=== PATIENT | female | born 1955 | race African-American/Black ===

== ENCOUNTER → 2017-08-17 | Outpatient (CLI) | payer OTHER ==
[~2017-08-17] VITALS: Ht 162.6 cm; Wt 73.1 kg
[~2017-08-17] MED LIST: HYDROCODONE-AP1 EAC6 PO; JANUMET 50-1,01 EACH PO; KLOR-CON 1010 MEQ PO; LYRICA100 MG PO; LYRICA150 MG PO; MOBIC15 MG PO; NABUMETONE 500500 M1 PO; NUCYNTA50 MG PO; PAXIL40 MG PO; PERCOCET 5-3251 EACH PO; PRAVACHOL20 MG PO; RELAFEN500 MG PO; TRIAMTERENE-HC1 EAC1 PO; VENTOLIN HFA INH8 GM INH; VICODIN 5-5001 EACH PO
--- NOTE | ~2017-08-17 | HPC ---
[facility] [place] [address] PAIN MANAGEMENT CONSULTATION Name: SANTIDARLEEN PRADO Room #: REG [facility].#: [id number] Admission: 08/17/17 Attend Phys: Mik De Jesus DO Discharge: Date of : 57 Report #: [id number] THIS REPORT FOR: //name// CC: Delio De Jesus DATE OF SERVICE: 08/18/2017 The patient is a very pleasant 61-year-old female, works at [employer]. She was prior seen for both cervical and lumbar radicular symptoms in the past. She had lumbar epidural injection back in 12/2015, which afforded good relief of lumbar radicular pain. She prior had cervical epidural injection in 2013 and 2014. Returns to Pain Clinic today noting cervical radicular symptoms seem to be returning without antecedent trauma and overuse. Notes pain is in the neck, right shoulder and arm, rates it an 8 on a VAS, deep aching sensation, worse at night, worse with raising the arm above her head. PHYSICAL EXAMINATION: Shows a 61-year-old female, BMI is 27.7 kg/m2. Vital signs stable as noted in the EMR. Cervical range of motion is modestly limited. Positive Lhermitte's with pain radiating into the neck, right shoulder and arm, decreased right deltoid and triceps strength. Hand grasp is diminished, but only modestly so. We reviewed her MRI of the cervical spine from 08/27/2015 noting moderate central stenosis C5-C6 with bilateral neural foraminal narrowing at C5-C6 and C4-C5. ASSESSMENT: Symptomatic cervical radiculopathy by clinical exam and history, history of lumbar radiculopathy. Epidural injection at last visit afforded good lumbar radicular improvement. Requires complex medication management. We had trialed Percocet in the past. She does better with hydrocodone. I have taken the liberty of renewing hydrocodone 5/325; limit 100 tablets, 1 tablet 3-4 times a day. We will resume nonsteroidal anti-inflammatory agent, meloxicam 15 mg one a day. Cervical epidural injection today. Follow up in 4 weeks for reevaluation. Cancel if doing well. ASSESSMENT: 1. Symptomatic cervical radiculopathy with clinical exam and history. Procedure: Cervical epidural injection under fluoroscopy. 2. Lumbar radiculopathy by history, axial back pain and myofascial pain component, requiring high-risk complex medication management. RECOMMENDATIONS: Medication as noted above, hydrocodone, and meloxicam. PROCEDURE NOTE: Cervical epidural injection under fluoroscopy. [address] [address] PAIN MANAGEMENT CONSULTATION Name: DARLEEN HANCOCK Room #: REG [facility] [place]#: [id number] Admission: 08/17/17 Attend Phys: Mik De Jesus DO Discharge: Date of : 57 Report #: [id number] PROCEDURE NOTE: After written and informed consent was obtained including risk of dural puncture, spinal cord trauma, paralysis and increased pain, the patient was taken to the fluoroscopy suite and placed in the prone position, with appropriate abdominal bolstering, neck was flexed, palms under the thighs. Skin was prepped with ChloraPrep. Sterile draping was applied. Skin wheal with 1% Xylocaine was raised. A 22-gauge 3-1/2 inch epidural Tuohy needle was placed via a midline approach at the C7-T1 interspace, advanced under biplanar fluoroscopy using continuous loss of resistance. With appropriate loss of resistance at the expected depth on lateral view, the glass loss of resistance syringe was disconnected. A low volume extension tubing was connected to the needle and a 5 mL syringe. Negative aspiration for cerebrospinal fluid or blood was noted. A 1 mL of Omnipaque was injected which showed spread within the epidural space on biplanar fluoroscopy. This was followed with 80 mg of triamcinolone plus 1 mL of 1.5% preservative Xylocaine. Needle was withdrawn to the interspinous ligament, 0.5 mL of Xylocaine was used to flush the needle. The needle was then completely withdrawn. The area was cleansed. Band-Aid was applied. The patient was allowed to move off the procedure table and ambulated to the recovery room, monitored for an appropriate period of time, discharged in good and stable condition. <ELECTRONICALLY SIGNED> By: Mik De Jesus DO 08/20/17 0715 [id number] [id number] Mik De Jesus DO /nt
[2017-08-17 13:20] VITALS: BP 133/74
== END | disposition home or self-care (01) ==
LOC: PAIN 07:11
DX: M54.12 Radiculopathy, cervical region (principal); G89.29 Other chronic pain; M54.16 Radiculopathy, lumbar region; M79.1 Myalgia; Z87.891 Personal history of nicotine dependence; Z88.6 Allergy status to analgesic agent

== ENCOUNTER → 2018-06-14 | Outpatient (CLI) | payer OTHER ==
[~2018-06-14] VITALS: Ht 162.6 cm; Wt 65.9 kg
[~2018-06-14] MED LIST changes: +HYDROCODON-ACE1 EAC7 PO; +NEURONTIN 300300 M1 PO
--- NOTE | ~2018-06-14 | HPC ---
[facility] [place] [address] PAIN MANAGEMENT CONSULTATION Name: DARLEEN HANCOCK [id number] Admission: 06/14/18 Attend Phys: Monica Youngblood MD Discharge: Date of : 57 Report #: [id number] THIS REPORT FOR: //name// CC: Delio Youngblood DATE OF SERVICE: 06/14/2018 PRIMARY CARE PHYSICIAN: Delio Luo M.D. CHIEF COMPLAINT: Pain between the shoulder blades and pain is radiating down into the arm and first 2 fingers. HISTORY OF PRESENT ILLNESS: The patient is a 62-year-old female who has been seen in the pain clinic in the past by Dr. Mik De Jesus. This is my first visit with the patient. She has a history of cervical and lumbar radicular symptoms. She has undergone epidural steroid injections in the lumbar area. She has also noted improvement after cervical epidural steroid injections in 2013 and 2014. She returns to the pain clinic indicating that her cervical radicular symptoms have returned without antecedent trauma or overuse. The patient notes pain in the neck, right shoulder, arms and pain that she rates as 3 in intensity now and can rise to the level of a 7/10 at bedtime. She experienced a deep aching sensation, which is worse at night, raising her arm above her head, it can be problematic. She had an MRI, which back in 2015 showed central spinal stenosis at C5-C6 with bilateral neural foraminal narrowing at C5/C6 and C4/C5. The patient has returned to the pain clinic with the desire to try medication management as well as consider possibility of another cervical epidural steroid injection in the future. ALLERGIES: CODEINE. CURRENT MEDICATIONS: Nabumetone 500 mg b.i.d., hydrocodone 5/325 p.r.n., metformin/Janumet mg, potassium 10 mEq, triamterene/hydrochlorothiazide 37.5/25, Paxil 40 mg. PAST MEDICAL HISTORY: Hypertension, depression, fibromyalgia, asthma, ringing in the ears, and chronic back pain. PAST SURGICAL HISTORY: Right hand cyst removal in 1979, tubal ligation, laparoscopic hernia repair in 2012. SOCIAL HISTORY: Instructor. REVIEW OF SYSTEMS: Generally good health, eye disease, double and blurred vision, glaucoma/cataracts, hearing loss/ringing in the ears, chronic problems, [facility] [address] [place] [address] PAIN MANAGEMENT CONSULTATION Name: DARLEEN HANCOCK Room #: REG [facility]#: [id number] Admission: 06/14/18 Attend Phys: Monica Youngblood MD Discharge: Date of : 57 Report #: [id number] sinuses asthma/wheezing, depression. LABORATORY DATA: MRI of the lumbar spine dated 10/24/2010. Impression - bulging disk seen at the lower 3 disk space levels in the lumbar spine with asymmetric ridging to the right with borderline canal narrowing at L4-L5. Asymmetric changes are associated with a right lateral recess annular tear. Mild broad-based disk protrusion to the right is thought less likely. PAIN CLINIC ASSESSMENT AND PQRS: 1. The patient has some arthritic changes up to the cervical neck area. 2. History of rheumatoid arthritis. The patient is not being treated for rheumatoid arthritis. 3. Height 5 feet 4 inches, weight 145 pounds, BMI is 24. 4. Vital Signs: Blood pressure 123/64, pulse 91, respiratory rate 16, room air saturation is 100%. 5. Pain intensity 3/10, now 7/10 at bedtime. 6. Fall risk. The patient has not fallen in the last 3 months. 7. Blood thinner. The patient is not on a blood thinning medication. 8. Hypertension. The patient is being treated for hypertension. 9. Opioid therapy greater than 6 weeks. The patient has come to the pain clinic with a desire to try opioid medications to help calm down her pain and discomfort. 10. Risk assessment tool for use of opioid medication with moderate risk. 11. Functional assessment tool. 12. Recreational drug use. The patient denies use of recreational drugs. 13. Tobacco: The patient is a former smoker. 14. Alcohol: The patient denies use of alcoholic beverages. PHYSICAL EXAMINATION: GENERAL: The patient is a well-developed, well-nourished black female. Appears her stated age. She is alert and oriented x 3. Affect is appropriate. Speech is fluent. HEENT: Normocephalic, atraumatic. Extraocular eye muscles intact. Sclerae nonicteric. Mucous membranes are moist. The patient has pain and discomfort in the upper neck area with pain and discomfort, which is radiating down between her shoulder blades on the right side into her arm and into the first 2 fingers, ring finger and index finger with some numbness and tingling. HEART: Regular rate. ABDOMEN: Nontender. Bowel sounds positive. EXTREMITIES: Upper extremity muscle strength is judged to be 5-/5 for the upper extremity muscles. Lower extremity muscle strength is judged to be 5/5 for the major muscle groups in the lower extremity. RECOMMENDATIONS: We discussed treatment options with the patient. Risks and benefits of opioid medications, which could include possibility of addiction as well as decreased effectiveness over a period of time secondary to development [address] [address] PAIN MANAGEMENT CONSULTATION Name: DARLEEN HANCOCK Room #: REG [facility].#: [id number] Admission: 06/14/18 Attend Phys: Monica Youngblood MD Discharge: Date of : 57 Report #: [id number] of tolerance. The patient will be given a script for [place] 5/325 1 p.o. q.4-6 hours. She will also try Neurontin 300 mg t.i.d. and note its efficacy. She will call us in 5 days if she has any concerns. We would like to thank you for letting us participate in her care. We hope she continues to improve. By: [id number] Monica Youngblood MD /DEQUAN
[2018-06-14 09:02] VITALS: BP 123/64
== END ==
LOC: PAIN 08:29
DX: M54.5 Low back pain (principal); M25.511 Pain in right shoulder; M54.2 Cervicalgia; M79.601 Pain in right arm; M79.641 Pain in right hand; Z79.899 Other long term (current) drug therapy; Z79.891 Long term (current) use of opiate analgesic

== ENCOUNTER → 2018-07-29 | Outpatient (CLI) | payer BC | LOC: MRI 07-24 11:36 | DX: M50.13 Cervical disc disorder with radiculopathy, cervicothoracic region (principal); M48.03 Spinal stenosis, cervicothoracic region; M25.78 Osteophyte, vertebrae ==

== ENCOUNTER 2018-09-16 13:27 | Emergency (ER) | payer BC ==
[~2018-09-16] VITALS: Ht 162.6 cm; Wt 62.6 kg
[2018-09-16 13:28] VITALS: BP 135/58
== END 2018-09-16 15:58 | disposition home or self-care (01) ==
LOC: ER 13:27
DX: M79.644 Pain in right finger(s) (principal); Z53.21 Procedure and treatment not carried out due to patient leaving prior to being seen by health care provider

== ENCOUNTER → 2019-04-14 | Outpatient (CLI) | payer OTHER | LOC: RAD 12:59 | DX: M41.86 Other forms of scoliosis, lumbar region (principal); M25.551 Pain in right hip ==

== ENCOUNTER → 2019-06-06 | Outpatient (CLI) | payer BC ==
[~2019-06-06] VITALS: Ht 162.6 cm; Wt 66.5 kg
[~2019-06-06] MED LIST changes: +LISINOPRIL10 MG PO; +MEDROLDOSEPACK PO; +PREVACID30 MG PO; +ROXICODONE5 M2 PO
[2019-06-06 13:45] VITALS: BP 124/66
--- NOTE | 2019-06-06 13:52 | NUR ---
Pain Clinic Assessment: 1. History of Osteoarthritis: SPINE History of Rheumatoid Arthritis: NO 2. Height: 5 ft. 4 in. 162.6 cm. Weight: 146.6 lb. oz. 66.497 kg. Patient's BMI: 25.2 3. Vital Signs: BP: 124/66 Pulse: 82 Resp: Temp: 02 Sat: 100 ECG Mon: 4. Pain Intensity: 3 NOW 7 AT HS 5. Fall Risk: Dizziness: N Needs help standing or walking: N Fallen in the last 3 months: N Fall risk comments: 6. Patient on Blood Thinner: None 7. History of Hypertension: Y 8. Opioid Therapy greater than 6 weeks: Y Opiate Contract Signed: 01/10/16 9. Risk Assessment Tool Provided: 4 MODERATE RISK 10. Functional Assessment Tool: 11. Recreational Drug Use: Never Drug Type: Tobacco Use: Former Smoker Tobacco Type: Amount or Packs/day: How Many Years: Alcohol Use: No Frequency: Quant:
--- NOTE | 2019-06-24 21:49 | HPC ---
[facility] [place] [address] PAIN MANAGEMENT CONSULTATION Name: DARLEEN HANCOCK [id number] Admission: 06/06/19 Attend Phys: Monica Youngblood MD Discharge: Date of : 57 Report #: [id number] THIS REPORT FOR: //name// CC: Alondra Youngblood DATE OF SERVICE: 06/06/2019 CHIEF COMPLAINT: Pain in the shoulder blade area. HISTORY: The patient is a 63-year-old female who has been seen in the pain clinic. She has had pain and discomfort in the past. Notes that she has had pain radiating down into her arms and involving her fingers. She returns to the pain clinic indicating that she is having some recurrence of pain and discomfort. She is having pain in the shoulder areas as well as pain between her shoulder blades. She rates the pain as a 3/10 at this point. It can rise to the level of 7 at bedtime. She has a history of cervical as well as lumbar radicular pain. Epidural steroid injections have improved her situation in the past. She has had an MRI. This showed central spinal stenosis at C5-C6 and bilateral neural foraminal narrowing at C5-C6 and C4/C5. She has returned to the pain clinic. She would like to try a conservative approach with medications. ALLERGIES: CODEINE. CURRENT MEDICATIONS: Lisinopril 10 mg, Prevacid 30 mg, gabapentin 300 mg t.i.d., hydrocodone 5/325 q.4 hours p.r.n., Janumet , triamterene/hydrochlorothiazide 37.5/25. PAIN CLINIC ASSESSMENT/PQRS: 1. History of osteoarthritis. The patient has some arthritic changes in her cervical spine as well as the lumbar spine. 2. Height 5 feet 4 inches, weight 146 pounds, BMI is 25.2. 3. Vital signs: Blood pressure 124/66, pulse 82, respiratory rate 18, room air saturation is 100%. 4. Pain intensity 3, now 7 at bedtime. 5. Fall risk. The patient has not fallen in the last 3 months. 6. Blood thinner. The patient is not on a blood thinning medication. 7. Hypertension. The patient is being treated for hypertension. 8. Opioids greater than 6 weeks. The patient received medication from one source. 9. Risk assessment tool, moderate for opioid use. 10. Functional assessment tool. 11. Recreational drug use: The patient denies. 12. Tobacco: The patient is a former smoker. 13. Alcohol. The patient denies use of alcoholic beverages. [address] [address] PAIN MANAGEMENT CONSULTATION Name: DARLEEN HANCOCK [id number] Admission: 06/06/19 Attend Phys: Monica Youngblood MD Discharge: Date of : 57 Report #: [id number] PHYSICAL EXAMINATION: GENERAL: The patient is a well-developed, well-nourished black female. She appears her stated age. She is alert and oriented x 3. Her affect is appropriate. Speech is fluent. HEENT: Normocephalic, atraumatic. Extraocular eye muscles intact. Sclerae nonicteric. Mucous membranes are moist. NECK: The patient has some pain in the upper neck area. Complains of pain between her shoulder blades. Notes some weakness and discomfort down into her arms. Has had numbness and tingling on the right side and down into her first 2 fingers in the past. HEART: Regular rate. ABDOMEN: Nontender. Bowel sounds present. EXTREMITIES: Upper extremity muscle strength judged to be 5-/5 for the major muscle groups in the upper extremity. Lower extremity muscle strength 5-/5 for the lower muscle groups. IMPRESSION: Cervical radiculopathy with spinal stenosis in the cervical spine area. RECOMMENDATIONS: We discussed the treatment options with the patient. At this juncture, we will try a conservative approach. The patient will try a Medrol Dosepak. She will take this medication as prescribed. She will also try oxycodone 5 mg 1 p.o. b.i.d. to help control the pain. Should her pain become problematic and continue to be painful, she will return to the Pain Clinic, at which time we will then consider an epidural steroid injection in the cervical area. We would like to thank you for letting us participate in her care. We hope she continues to improve. <ELECTRONICALLY SIGNED> By: Monica Youngblood MD 06/24/19 [id number] Monica Youngblood MD /thomas
== END ==
LOC: PAIN 06:55
DX: M48.02 Spinal stenosis, cervical region (principal); M54.12 Radiculopathy, cervical region; Z88.5 Allergy status to narcotic agent; Z79.899 Other long term (current) drug therapy

== ENCOUNTER → 2019-08-08 | Outpatient (CLI) | payer OTHER | LOC: RAD 14:36 | DX: M47.816 Spondylosis without myelopathy or radiculopathy, lumbar region (principal); M48.061 Spinal stenosis, lumbar region without neurogenic claudication; M48.02 Spinal stenosis, cervical region; M43.8X4 Other specified deforming dorsopathies, thoracic region; M46.06 Spinal enthesopathy, lumbar region; M25.78 Osteophyte, vertebrae; M50.323 Other cervical disc degeneration at C6-C7 level; M41.86 Other forms of scoliosis, lumbar region; G89.29 Other chronic pain ==

== ENCOUNTER → 2019-10-03 | Outpatient (CLI) | payer OTHER ==
[~2019-10-03] VITALS: Ht 162.6 cm; Wt 70.6 kg
[~2019-10-03] MED LIST changes: +NORCO 5-325 TA1 EAC2 PO
--- NOTE | ~2019-10-03 | HPC ---
[facility] [place] [address] PAIN MANAGEMENT CONSULTATION Name: DARLEEN HANCOCK Room #: REG [facility].#: [id number] Admission: 10/03/19 Attend Phys: Monica Youngblood MD Discharge: Date of : 57 Report #: [id number] THIS REPORT FOR: cc: Nina Mckeno MD,Monica Mcelroy MD, MD ~ CC: Monica Mckeon DATE OF SERVICE: 10/03/2019 CHIEF COMPLAINT: Still having some pain between the shoulder blades and down in the right arm and middle fingers. HISTORY: The patient is a 63-year-old female who has been followed in the pain clinic. She has returned to the pain clinic because she is still experiencing some pain and discomfort. She has pain down in her right arm. She has numbness in her fingers. She gleaned benefit from the past epidural steroid injection. She felt that it helped for about 6 months. She rates her pain as 5/10 today. She would like to have a renewal of medications to help with the pain. She does have some spinal stenosis at C5-C6 and C3-C4. She would like to continue with the conservative approach today. The patient previously stopped her oral medications is due to GI upset. She was seen by her gastrointestinal physician. Everything seems to be working reasonably well. She would like to restart her gabapentin as well as her [place] medications. ALLERGIES: CODEINE. CURRENT MEDICATIONS: Lisinopril 10 mg, Prevacid 30 mg, gabapentin 300 mg t.i.d., hydrocodone 5/325 q. 4 hours p.r.n., Janumet 50/100, triamterene/hydrochlorothiazide 37.5 mg/25 mg. PAIN CLINIC ASSESSMENT AND PQRS: 1. The patient has a history of osteoarthritis. She has some arthritic changes in her cervical spine as well as in her lumbar spine. She is not being treated for rheumatoid arthritis. 2. Height 5 feet 4 inches, weight 155 pounds, BMI is 26. 3. Vital signs: Blood pressure 125/64, pulse 82, respiratory rate 18, room air saturation is 100%. 4. Pain intensity 5/10. 5. Fall history: The patient has not fallen in the last 3 months. 6. Blood thinner: The patient is not on the blood thinning medication. 7. Hypertension. The patient is being treated for hypertension. 8. Opioids greater than 6 weeks. The patient received medication from one source. 9. Risk assessment 4/[place] [address] PAIN MANAGEMENT CONSULTATION Name: DARLEEN HANCOCK Room #: REG [facility]#: [id number] Admission: 10/03/19 Attend Phys: Monica Youngblood MD Discharge: Date of : 57 Report #: [id number] 10. Functional assessment tool /70. 11. Recreational drug use: The patient denies. 12. Tobacco: The patient is a former smoker, smoked about 15 years. 13. Alcohol. The patient denies use of alcoholic beverages. PHYSICAL EXAMINATION: GENERAL: The patient is a well-developed, well-nourished black female, appears her stated age. She is alert and oriented x 3. Her affect is appropriate. Speech is fluent. HEENT: Normocephalic and atraumatic. Extraocular eye muscles intact. Sclerae nonicteric. Mucous membranes are moist. NECK: Without adenopathy or JVD. The patient has pain and discomfort down between her shoulder blades, has tingling in her first two fingers. HEART: Regular rate. ABDOMEN: Nontender. Bowel sounds present. EXTREMITIES: Upper extremity muscle strength noted to be 5-/5 for the major muscle groups in the upper extremity. The patient has lower extremity muscle strength 5-/5. IMPRESSION: 1. History of cervical radiculopathy with spinal stenosis in the cervical spine area. 2. Hypertension. 3. GI complaints. 4. Diabetes. RECOMMENDATIONS: We discussed treatment options with the patient. At this juncture, we will renew the patient's medication. She feels that her stomach is less problematic at this juncture. A script for her medications has been written. She will take hydrocodone 5/325 one p.o. as directed. She will also take gabapentin 300 mg 1 p.o. t.i.d. She will continue with nabumetone 500 mg b.i.d. The patient will monitor her GI tract because of the nonsteroidal effects of the nabumetone. She has been given a Medrol Dosepak to see whether or not this would help to decrease the pain and discomfort in a conservative method. She will follow up in the near future. The possibility of a cervical epidural steroid injection in the future is an option. We would like to thank you for letting us participate in her care. We hope she continues to improve. By: [id number] Monica Youngblood MD /DEQUAN
[2019-10-03 08:50] VITALS: BP 125/64
--- NOTE | 2019-10-03 08:56 | NUR ---
Pain Clinic Assessment: 1. History of Osteoarthritis: SPINE History of Rheumatoid Arthritis: NO 2. Height: 5 ft. 4 in. 162.6 cm. Weight: 155.6 lb. oz. 70.580 kg. Patient's BMI: 26.7 3. Vital Signs: BP: 125/64 Pulse: 82 Resp: 18 Temp: 02 Sat: 100 ECG Mon: 4. Pain Intensity: 5 5. Fall Risk: Dizziness: N Needs help standing or walking: N Fallen in the last 3 months: N Fall risk comments: 6. Patient on Blood Thinner: None 7. History of Hypertension: Y 8. Opioid Therapy greater than 6 weeks: Y Opiate Contract Signed: 01/10/16 9. Risk Assessment Tool Provided: 4 MODERATE RISK 10. Functional Assessment Tool: / 11. Recreational Drug Use: Never Drug Type: Tobacco Use: Former Smoker Tobacco Type: Cigarettes Amount or Packs/day: 1 How Many Years: 15 Alcohol Use: No Frequency: Quant:
== END ==
LOC: PAIN 10-01 06:41
DX: M79.601 Pain in right arm (principal); M25.561 Pain in right knee; E11.9 Type 2 diabetes mellitus without complications; I10 Essential (primary) hypertension; K92.89 Other specified diseases of the digestive system; Z87.39 Personal history of other diseases of the musculoskeletal system and connective tissue

== ENCOUNTER → 2020-01-07 | Outpatient (CLI) | payer OTHER ==
[~2020-01-07] VITALS: Ht 162.6 cm; Wt 68.4 kg
[~2020-01-07] MED LIST changes: +FLEXERIL PO; +NEURONTIN300 MG PO
[2020-01-07 08:58] VITALS: BP 151/78
--- NOTE | 2020-01-07 09:17 | NUR ---
Pain Clinic Assessment: 1. History of Osteoarthritis: SPINE History of Rheumatoid Arthritis: NO 2. Height: 5 ft. 4 in. 162.6 cm. Weight: 150.8 lb. oz. 68.402 kg. Patient's BMI: 25.9 3. Vital Signs: BP: 151/78 Pulse: 77 Resp: 14 Temp: 02 Sat: 100 ECG Mon: 4. Pain Intensity: 6 5. Fall Risk: Dizziness: N Needs help standing or walking: N Fallen in the last 3 months: N Fall risk comments: 6. Patient on Blood Thinner: None 7. History of Hypertension: Y 8. Opioid Therapy greater than 6 weeks: Y Opiate Contract Signed: 01/10/16 9. Risk Assessment Tool Provided: 4 MODERATE RISK 10. Functional Assessment Tool: / 11. Recreational Drug Use: Never Drug Type: Tobacco Use: Former Smoker Tobacco Type: Amount or Packs/day: How Many Years: Alcohol Use: No Frequency: Quant:
--- NOTE | 2020-01-23 15:47 | HPC ---
[facility] [place] [address] PAIN MANAGEMENT CONSULTATION Name: DARLEEN HANCOCK Room #: REG [facility].#: [id number] Admission: 01/07/20 Attend Phys: Monica Youngblood MD Discharge: Date of : 57 Report #: [id number] THIS REPORT FOR: cc: Nina Mckeon MD,Nina Youngblood,Monica Reid MD ~ CC: Monica Mckeon DATE OF SERVICE: 01/07/2020 CHIEF COMPLAINT: Pain in the middle of the back as well as in the upper cervical area. HISTORY: The patient is a 64-year-old female who has been followed in the pain clinic because of chronic pain. She returns today indicating that she continues to have pain and discomfort between her shoulder blades. The pain still radiates down her right arm and into the middle fingers with some numbness. She has noted some mid and low back pain at this point. She has been having muscle spasms. They have been quite problematic and awakens her at night. She rates her pain as a 6/10. Pain is worse at night. Lying down could be problematic, raising the right arm is problematic. Reaching behind her is limited. At this point, she would like to continue with her medications. She feels that they provide some benefit. She does not have any complication from their use. ALLERGIES: CODEINE. CURRENT MEDICATIONS: Lisinopril 10 mg, Prevacid 30 mg, gabapentin 300 mg t.i.d., hydrocodone 5/325 one p.o. q. 4 hours p.r.n., Janumet 50/100, triamterene/hydrochlorothiazide 37.5/25, nabumetone 500 mg b.i.d., gabapentin 300 mg t.i.d., Flexeril 10 mg 1 p.o. b.i.d. for muscle spasm. PAIN CLINIC ASSESSMENT AND PQRS: 1. The patient has a history of osteoarthritis. Has some arthritic changes in her cervical spine as well as in the lumbar spine. She is not being treated for rheumatoid arthritis. 2. Height 5 feet 4 inches, weight 150. BMI is 25.9. 3. Vital signs: Blood pressure 151/78, pulse 77, respiratory rate 14, room air saturation 100%. 4. Pain intensity 12/23. 5. Fall history: The patient has not fallen in the last 3 months. 6. Blood thinner. The patient is not on a blood thinning medication. 7. Hypertension. The patient is being treated for hypertension. 8. Opioids greater than 6 weeks. 9. Risk assessment tool, moderate for opioid use. 10. Functional assessment tool 55/70. [address] [address] PAIN MANAGEMENT CONSULTATION Name: DARLEEN HANCOCK Room #: REG CLI [facility].#: [id number] Admission: 01/07/20 Attend Phys: Monica Youngblood MD Discharge: Date of : 57 Report #: [id number] 11. Recreational drug use. The patient denies. 12. Tobacco: The patient denies. 13. Alcohol. The patient denies frequent use of alcoholic beverages. PHYSICAL EXAMINATION: GENERAL: The patient is a well-developed, well-nourished black female, appears her stated age. She is alert and oriented x3. Her affect is appropriate. Speech is fluent. HEENT: Normocephalic, atraumatic. Extraocular eye muscles intact. Sclerae nonicteric. Mucous membranes are moist. The patient is wearing a mask. NECK: Without adenopathy. The patient has pain and discomfort between the shoulder blades. Has some pain that can radiate down into her arm and into her first 2 fingers. HEART: Regular rate. ABDOMEN: Nontender. MUSCULOSKELETAL: Upper extremity muscle strength judged to be 5-/5 for the major muscle groups in the upper extremity. The patient's strength in the lower extremities 5-/5. ASSESSMENT: 1. History of cervical radiculopathy with spinal stenosis in the cervical area. 2. Hypertension. 3. Gastrointestinal upset/complaints. 4. Diabetes. RECOMMENDATIONS: We discussed treatment options with the patient. At this juncture, we will continue with her medications. She feels that the hydrocodone medication provides benefit. She has taken that as prescribed. She is aware that opioid medications can become less effective as the time goes on because of development of tolerance. Keeps her medications in a guarded area. She also has been using nabumetone. She is aware it is a nonsteroidal anti-inflammatory medication. She will continue to monitor her GI tract for discomfort. She will stop taking this medication should that be a problem. She will continue with gabapentin 300 mg 1 p.o. t.i.d. She will also use Flexeril 10 mg 1 p.o. b.i.d. for help of muscle spasms. We would like to thank you for letting us participate in her care. We hope she continues to improve. A script for her medications have been sent to her pharmacy. She will call us if she has any concerns. <ELECTRONICALLY SIGNED> By: Monica Youngblood MD 01/23/20 [id number] Monica Youngblood MD /thomas
== END ==
LOC: PAIN 01-02 12:30
PROVIDERS: ATTEND Anesthesiology Pain Medicine
DX: M48.02 Spinal stenosis, cervical region (principal); M54.12 Radiculopathy, cervical region; I10 Essential (primary) hypertension; E11.9 Type 2 diabetes mellitus without complications

== ENCOUNTER → 2020-01-08 | Outpatient (CLI) | payer OTHER ==
[2020-01-08 10:15] LABS: ABSOLUTE NEUTROPHILS 3.4 thou/uL (1.4-8.2); BASOPHILS 0.7 % (0.0-2.0); EOSINOPHILS 1.7 % (0.0-3.0); HEMATOCRIT 38.4 % (37.0-47.0); HEMOGLOBIN 12.6 gm/dL (12.0-15.0); MCH 28.4 pg (26.0-34.0); MCHC 32.8 g/dL (28.0-37.0); MCV 86.3 fL (80.0-100.0); MONOCYTES 7.3 % (1.0-8.0); PLATELET COUNT 350 thou/uL (150-400); POLYS 53.3 % (36.0-66.0); RBC 4.44 mil/uL (4.20-5.00); RDW 13.8 % (10.5-14.5); WBC 6.4 thou/uL (4.0-11.0)
[2020-01-08 10:30] LABS: ANION GAP 4 mmol/L (7-16); BUN 13 mg/dL (7-18); CALCIUM 9.2 mg/dL (8.5-10.1); CHLORIDE 98 mmol/L (98-107); CO2 33 mmol/L (21-32); CREATININE 0.9 mg/dL (0.6-1.0); GLUCOSE 118 mg/dL (74-106); POTASSIUM 4.1 mmol/L (3.5-5.1); SGOT 23 U/L (15-37); SGPT 27 U/L (30-65); SODIUM 135 mmol/L (136-145); TOTAL BILIRUBIN 0.3 mg/dL (0.2-1.0); TOTAL PROTEIN 7.4 g/dL (6.4-8.2)
[2020-01-08 10:45] LABS: CHOLESTEROL 212 mg/dL (<200); HDL CHOLESTEROL 29 mg/dL (>40); LDL CHOLESTEROL 160 mg/dL (<100); TC:HDL 7.3 Ratio (Not establshd); TRIGLYCERIDE 116 mg/dL (<150); VLDL 23 mg/dL (<40)
[2020-01-09 00:06] LABS: GLYCOHEMOGLOBIN (HGB A1C) 6.7 % (4.8-5.6)
== END ==
LOC: LABMALL 09:44
PROVIDERS: ATTEND Family Medicine
DX: E11.9 Type 2 diabetes mellitus without complications (principal); I10 Essential (primary) hypertension

== ENCOUNTER → 2021-02-23 | Outpatient (CLI) | payer OTHER ==
[~2021-02-23] VITALS: Ht 162.6 cm; Wt 67.1 kg
[2021-02-23 08:44] VITALS: BP 151/75
--- NOTE | 2021-02-23 08:55 | NUR ---
Pain Clinic Assessment: 1. History of Osteoarthritis: SPINE History of Rheumatoid Arthritis: NO 2. Height: 5 ft. 4 in. 162.6 cm. Weight: 148.0 lb. oz. 67.132 kg. Patient's BMI: 25.4 3. Vital Signs: BP: 151/75 Pulse: 82 Resp: 16 Temp: 02 Sat: 98 ECG Mon: 4. Pain Intensity: 6 5. Fall Risk: Dizziness: N Needs help standing or walking: N Fallen in the last 3 months: N Fall risk comments: 6. Patient on Blood Thinner: None 7. History of Hypertension: Y 8. Opioid Therapy greater than 6 weeks: Y Opiate Contract Signed: 01/10/16 9. Risk Assessment Tool Provided: 4 MODERATE RISK 10. Functional Assessment Tool: / 11. Recreational Drug Use: Never Drug Type: Tobacco Use: Former Smoker Tobacco Type: Amount or Packs/day: How Many Years: Alcohol Use: No Frequency: Quant:
== END ==
LOC: PAIN 06:53
PROVIDERS: ATTEND Anesthesiology Pain Medicine
DX: G89.29 Other chronic pain (principal); M54.5 Low back pain; M54.2 Cervicalgia; I10 Essential (primary) hypertension; K30 Functional dyspepsia; F32.9 Major depressive disorder, single episode, unspecified; M79.7 Fibromyalgia; J45.909 Unspecified asthma, uncomplicated; Z88.5 Allergy status to narcotic agent; Z79.891 Long term (current) use of opiate analgesic; Z79.899 Other long term (current) drug therapy; Z87.891 Personal history of nicotine dependence; Z87.39 Personal history of other diseases of the musculoskeletal system and connective tissue